=== PATIENT | female | born 1965 | race Caucasian/White ===

== ENCOUNTER 2021-07-26 16:59 | Emergency (ER) | payer OTHER, SELFPAY ==
[2021-07-26 17:07] VITALS: BP 131/80; PULSE 75; RESP 18; TEMP 36.6; O2SAT 98
--- NOTE | 2021-07-26 17:13 | DI.RAD.S_ITS ---
PROCEDURE: XR HAND LT MIN 3V INDICATIONS: Fall TECHNIQUE: 3 views of the hand(s) acquired. COMPARISON: None. FINDINGS: Bones: Medial subluxation noted at the 4th proximal phalangeal joint. There is a suggestion of fracture noted on the lateral image only involving the head of the 4th proximal phalanx. Degenerative joint space narrowing and marginal osteophytes suggest this may be an old fracture. Soft tissues: No suspicious soft tissue calcifications. Associated 4th finger soft tissue swelling noted. IMPRESSION: 1. Subluxed 4th proximal interphalangeal joint. 2. Possible underlying fracture through the head of the 4th proximal phalanx, probably old, noted only on the lateral exam. Approved by: Mahesh Moncada M.D. on 07/26/2021 at 16:53
--- NOTE | 2021-07-26 17:13 | DI.RAD.S_ITS ---
PROCEDURE: XR WRIST LT MIN 3V INDICATIONS: Fall TECHNIQUE: 4 views of the wrist were acquired. COMPARISON: None. FINDINGS: Bones: No fractures or dislocations. No suspicious bony lesions. Joint space narrowing and periarticular osteophyte formation at the radial carpal, scaphoid trapezial, and 1st carpometacarpal joints, indicating osteoarthritis. Scaphoid view: Negative Soft tissues: No suspicious soft tissue calcifications. IMPRESSION: No acute fracture. No osseous lesion. If symptoms and/or clinical suspicion for pathology persist, further assessment with repeat, or advanced imaging (e.g., CT, MRI, or bone scan) may be helpful for further assessment. Dictated by: Adelina Barrett M.D. on 07/26/2021 at 17:31 Approved by: Adelina Barrett M.D. on 07/26/2021 at 17:32
--- NOTE | 2021-07-26 19:36 | DI.RAD.S_ITS ---
PROCEDURE: XR HAND LT MIN 3V INDICATIONS: Dislocation: post reduction xray TECHNIQUE: 3 views of the hand(s) acquired. COMPARISON: [facility], , XR HAND LT MIN 3V, 07/26/2021, 17:07. FINDINGS: Bones: No fractures or dislocations. Relocation of the proximal interphalangeal joint of the 4th digit. Carpal bones are normally aligned. No suspicious bony lesions. Soft tissues: No suspicious soft tissue calcifications. IMPRESSION: Relocation of 4th digit. Dictated by: Adelina Barrett M.D. on 07/26/2021 at 19:51 Approved by: Adelina Barrett M.D. on 07/26/2021 at 19:51
--- NOTE | 2021-07-29 12:18 | ED_ITS ---
HPI - Extremity Injury (Upper) <Sree Richter PA-C - Last Filed: 07/29/21 12:46> General Chief Complaint: Extremity Injury, Upper Stated Complaint: LEFT HAND RING FINGER INJURY Time Seen by Provider: 07/26/21 17:12 Source: patient Mode of arrival: Ambulatory History of Present Illness HPI narrative: 55-year-old female with no reported past medical history presents to the ED status post a injury sustained to the left ring finger. Patient states she suffered a mechanical fall just prior to arrival, fell with her left hand outstretched, hyperextending her left ring finger. Patient states that she has been unable to flex the finger since the injury, is experiencing pain. Patient denies numbness, tingling, weakness. Patient denies any other injuries, head strike. Patient denies chest pain, shortness of breath, loss of consciousness, lightheadedness, dizziness. Related Data Allergies Allergy/AdvReac Type Severity Reaction Status Date / Time Sulfa (Sulfonamide Allergy Verified 07/26/21 17:10 Antibiotics) Review of Systems <Sree Richter PA-C - Last Filed: 07/29/21 12:46> Review of Systems ROS Unobtainable: All systems reviewed & are unremarkable except as noted in HPI and below Constitutional Constitutional: Denies chills, Denies fatigue, Denies fever(s), Denies frequent falls, Denies lethargy and Denies weakness Eyes Eyes: Denies change in vision, Denies eye discharge, Denies irritation and Denies loss of vision ENT Ears, Nose, Mouth, and Throat: Denies change in voice, Denies dizziness, Denies neck pain, Denies sore throat and Denies throat swelling Cardiovascular Cardiovascular: Denies chest pain, Denies irregular heart rhythm, Denies lightheadedness, Denies palpitations, Denies dyspnea, Denies dyspnea on exertion and Denies orthopnea Respiratory Respiratory: Denies cough, Denies dyspnea, Denies dyspnea on exertion and Denies wheezing Gastrointestinal Gastrointestinal: Denies abdominal pain, Denies change in bowel habits, Denies diarrhea, Denies nausea and Denies vomiting Genitourinary Genitourinary: Denies hematuria, Denies flank pain, Denies urinary incontinence and Denies urinary urgency Musculoskeletal Musculoskeletal: Denies back pain, Denies muscle weakness, Denies neck pain, Denies numbness and Denies tingling Comments: Left ring finger pain, inability to flex the finger Integumentary/Breasts Skin/Breast: Denies pruritus, Denies erythema, Denies rash and Denies wounds Neurologic Neurologic: Denies behavioral changes, Denies confusion, Denies dizziness, Denies frequent falls, Denies loss of vision, Denies numbness, Denies tingling and Denies weakness Psychiatric Psychiatric: Denies anxiety, Denies behavioral changes, Denies confusion, Denies depression, Denies homicidal ideation and Denies suicidal ideation Endocrine Endocrine: Denies fatigue, Denies flushing and Denies palpitations Hematologic/Lymphatic Hematologic/Lymphatic: Denies easy bruising Allergic/Immunologic Allergic/Immunologic: Denies urticaria, Denies throat swelling and Denies wheezing Exam <Sree Richter PA-C - Last Filed: 07/29/21 12:46> Initial Vital Signs Initial Vital Signs: Vital Signs Temperature 97.8 F 07/26/21 17:07 Pulse Rate 75 07/26/21 17:07 Respiratory Rate 18 07/26/21 17:07 Blood Pressure 131/80 07/26/21 17:07 Pulse Oximetry 98 07/26/21 17:07 Const General: cooperative, healthy appearing and comfortable [facility] Head: normal to inspection Eyes General: appearance normal, both eyes and all related structures Resp Effort & Inspection: normal respiratory effort Auscultation: clear to auscultation bilaterally Cardio Rate: regular rate Rhythm: regular rhythm Skin General: no rashes or lesions noted Neuro General: patient alert, patient awake and patient oriented x3 Extrem Other: left ring finger appears deformed, slanted 2 words digit 3. Mild bruising noted on the volar surface of the finger. Patient unable to flex the finger. Neurovascularly intact. Skin intact. Psych Appearance: grossly normal Mental Status: mental status grossly normal <Thais Noel DO - Last Filed: 08/04/21 05:13> Initial Vital Signs Initial Vital Signs: Vital Signs Temperature 97.8 F 07/26/21 17:07 Pulse Rate 75 07/26/21 17:07 Respiratory Rate 18 07/26/21 17:07 Blood Pressure 131/80 07/26/21 17:07 Pulse Oximetry 98 07/26/21 17:07 Procedures <KALPESH Rapp Last Filed: 07/29/21 12:46> Orthopedic Joint Reduction Joint #1: Side: left Joint Reduction Location: finger Analgesia: other ( Ibuprofen, Tylenol) Technique used: direct manipulation Post-reduction neuro exam: intact Post-reduction vascular: intact Post Reduction X-Ray Obtained: Yes Post Reduction X-Ray Results: reduced Patient Tolerated Procedure: Well Additional Comments: left ring finger naomi-taped to left 3rd digit. Patient was able to flex and extend all fingers post reduction. Course <Sree Richter PA-C - Last Filed: 07/29/21 12:46> Orders Ordered: Discontinued Medications Acetaminophen (Acetaminophen 325 Mg Tablet) 975 mg PO NOW ONE Stop: 07/26/21 17:16 Ibuprofen (Ibuprofen 400 Mg Tablet) 800 mg PO NOW ONE Stop: 07/26/21 17:16 Oxycodone/Acetaminophen (Oxycodone/Acetaminophen 5/325 Tablet) 1 tab PO NOW ONE Stop: 07/26/21 17:13 <Thais Noel DO - Last Filed: 08/04/21 05:13> Orders Ordered: Discontinued Medications Acetaminophen (Acetaminophen 325 Mg Tablet) 975 mg PO NOW ONE Stop: 07/26/21 17:16 Ibuprofen (Ibuprofen 400 Mg Tablet) 800 mg PO NOW ONE Stop: 07/26/21 17:16 Oxycodone/Acetaminophen (Oxycodone/Acetaminophen 5/325 Tablet) 1 tab PO NOW ONE Stop: 07/26/21 17:13 MDM - Extremity Injury (Upper) <KALPESH Rapp Last Filed: 07/29/21 12:46> Imaging Data Extremity x-ray #1: Radiologist's Impression: PROCEDURE:? XR HAND LT MIN 3V ? INDICATIONS:? Dislocation: post reduction xray ? TECHNIQUE:? 3 views of the hand(s) acquired.? ? COMPARISON:? [facility], CR, XR HAND LT MIN 3V, 07/26/2021, 17:07. ? FINDINGS:? ? Bones:? No fractures or dislocations.? Relocation of the proximal interphalangeal joint of the 4th digit.? Carpal bones are normally aligned.? No suspicious bony lesions.? ? Soft tissues:? No suspicious soft tissue calcifications.? ? ? IMPRESSION:? Relocation of 4th digit. ? ? Dictated by: Adelina Barrett M.D. on 07/26/2021 at 19:51 ? ? Approved by: Adelina Barrett M.D. on 07/26/2021 at 19:51 ? Extremity x-ray #2: Radiologist's Impression: PROCEDURE:? XR WRIST LT MIN 3V ? INDICATIONS: Fall ? TECHNIQUE:? 4 views of the wrist were acquired.? ? COMPARISON:? None. ? FINDINGS:? ? Bones:? No fractures or dislocations.? No suspicious bony lesions.? Joint space narrowing and periarticular osteophyte formation at the radial carpal, scaphoid trapezial, and 1st carpometacarpal joints, indicating osteoarthritis. ? Scaphoid view:? Negative ? Soft tissues:? No suspicious soft tissue calcifications.? ? IMPRESSION:? No acute fracture. No osseous lesion. If symptoms and/or clinical suspicion for pathology persist, further assessment with repeat, or advanced imaging (e.g., CT, MRI, or bone scan) may be helpful for further assessment. ? ? Dictated by: Adelina Barrett M.D. on 07/26/2021 at 17:31 ? ? Approved by: Adelina Barrett M.D. on 07/26/2021 at 17:32 ? Extremity x-ray #3: Radiologist's Impression: PROCEDURE:? XR HAND LT MIN 3V ? INDICATIONS:? Fall ? TECHNIQUE:? 3 views of the hand(s) acquired.? ? COMPARISON:? None. ? FINDINGS:? ? Bones:? Medial subluxation noted at the 4th proximal phalangeal joint.? There is a suggestion of fracture noted on the lateral image only involving the head of the 4th proximal phalanx.? Degenerative joint space narrowing and marginal osteophytes suggest this may be an old fracture. ? Soft tissues:? No suspicious soft tissue calcifications.? Associated 4th finger soft tissue swelling noted. ? ? IMPRESSION:? ? 1. Subluxed 4th proximal interphalangeal joint.? 2. Possible underlying fracture through the head of the 4th proximal phalanx, probably old, noted only on the lateral exam.? ? ? Approved by: Mahesh Moncada M.D. on 07/26/2021 at 16:53? MDM Narrative Medical decision making narrative: 55-year-old female with no reported past medical history presents to the ED status post a injury sustained to the left ring finger. Concern for fracture/ dislocation versus musculoskeletal sprain/strain. Will obtain x-rays. X-ray shows Subluxed 4th proximal interphalangeal joint, with possible fracture of head of 4th proximal phalanx. Dr. Kwan from ortho was consulted, Who recommended a reduction, followed by a post reduction x-ray. The dislocation was reduced, ring finger naomi-taped with digit 3. Repeat x-ray shows?relocation of the proximal interphalangeal joint of the 4th digit. Dr. Kwan consulted again, she agrees with x-ray read, she recommends follow-up in clinic. Patient discharged home with ED return precautions, follow-up with ortho. Patient verbalized understanding. Discharge Plan Departure Patient Disposition: Home Clinical Impression: Dislocation of finger Instructions: DI for Finger Dislocation Activity Restrictions/Additional Instructions: You were evaluated in the ED for a finger injury today the x-ray showed that you had dislocated your ink finger in the left hand. The dislocation was reduced and the post reduction x-rays showed that the finger is back in place. Please keep that finger naomi-taped to the adjoining finger. Please follow-up with [facility] at [phone]. Return to the ED if you experience worsening pain, numbness, tingling, weakness. <Thais Noel, DO - Last Filed: 08/04/21 05:13> Cosign ED Attending Salvatoreature Attestation: I was immediately available in the department for consultation. Documentation has been reviewed.
== END 2021-07-26 20:13 | disposition home or self-care (01) ==
PROVIDERS: Emergency Provider Student in an Organized Health Care Education/Training Program
DX: S63.285A Dislocation of proximal interphalangeal joint of left ring finger, initial encounter (principal); W18.30XA Fall on same level, unspecified, initial encounter
CPT/HCPCS: 26770; 73110; 73130; 99283